=== PATIENT | female | born 1990 | race Caucasian/White ===

== ENCOUNTER 2017-12-09 12:24 | Emergency (ER) | payer MEDICAID ==
[~2017-12-09] VITALS: Ht 160 cm; Wt 82.0 kg
[2017-12-09] MEDS ORDERED: IBUPROFEN 600MG TABLET PO STA (12:53)
[2017-12-09 16:00] VITALS: BP 109/61
== END 2017-12-09 16:13 | disposition home or self-care (01) ==
LOC: ER 12:24
DX: R07.89 Other chest pain (principal)
CPT/HCPCS: 71045; 81025; 93005; 99284